=== PATIENT | female | born 1995 | race Caucasian/White ===

== ENCOUNTER → 2019-03-02 | Outpatient (CLI) | payer OTHER ==
--- NOTE | 2019-03-08 22:06 | SLEEPCENT ---
DATE OF PROCEDURE: 03/02/2019 Ordered by: RUBEN Hi Nocturnal polysomnography was performed for evaluation of sleep physiology in this patient with a history of excessive somnolence, morning headaches and nonrestorative sleep. 7 hours and 34 minutes of data were reviewed. There were 422 minutes of sleep identified. Sleep latency was short at 8 minutes. REM latency was prolonged at 306 minutes. Sleep architecture showed minor fragmentation, reasonable sleep progression. Overall sleep efficiency was 94%. The electrocardiogram showed a sinus rhythm with an average heart rate of 60 beats per minute. EEG showed reasonably normal waveforms with some mild coarsening likely related to drug effect. There were only four respiratory events identified of 10 seconds in duration or greater for an apnea-hypopnea index of 0.6 with some scattered limb activity, one train of 30 events. Limb movement arousal index of 5.4. IMPRESSION Normal nocturnal polysomnography with snoring.
== END ==
LOC: M SLEEP 19:22
PROVIDERS: ATTEND Nurse Practitioner Adult Health
DX: G47.30 Sleep apnea, unspecified (principal)